=== PATIENT | female | born 1955 | race Caucasian/White ===

== ENCOUNTER → 2019-09-06 09:02 | Outpatient (CLI) | payer OTHER, SELFPAY ==
--- NOTE | ~2019-09-06 | DEXA_ITS ---
Bone Density Report Name: Little Lemons Age: 63 Sex: Female Ethnicity: White Date of : 1955 Indication: osteopenia; height loss;postmenopausal Referring Provider: AUDREY BULLARD Study: Bone densitometry was performed. Exam Date: September 06, 2019 Accession number: [id number] Bone Density: Region BMD T-score Z-score Classification AP Spine (L1-L4) 0.813 -2.1 -0.4 Osteopenia Femoral Neck (Left) 0.617 -2.1 -0.6 Osteopenia Total Hip (Left) 0.740 -1.7 -0.5 Osteopenia Femoral Neck (Right) 0.643 -1.9 -0.4 Osteopenia Total Hip (Right) 0.777 -1.3 -0.2 Osteopenia Total Hip Mean 0.759 -1.5 -0.4 Osteopenia World Health Organization criteria for BMD impression classify patients as: Normal (T-score at or above -1.0), Osteopenia (T-score between -1.0 and -2.5), or Osteoporosis (T-score at or below -2.5). 10-year Fracture Risk(1): Major Osteoporotic Fracture 11% Hip Fracture 1.6% Reported Risk Factors: [place] (), Neck BMD=0.617, BMI=25.3 (1) FRAX(R) Version 3.08. Fracture probability calculated for an untreated patient. Fracture probability may be lower if the patient has received treatment. Previous Exams: Region Exam Age BMD T-score BMD Change BMD Change Date g/cm2 vs Baseline vs Previous AP Spine(L1-L4) 09/06/2019 63 0.813 -2.1 -0.044* -0.044* 02/03/2017 61 0.858 -1.7 Total Hip(Left) 09/06/2019 63 0.740 -1.7 -0.028* -0.028* 02/03/2017 61 0.768 -1.4 Total Hip(Right) 09/06/2019 63 0.777 -1.3 -0.026 -0.026 02/03/2017 61 0.804 -1.1 *Denotes significance at 95% confidence level, LSC for AP Spine = 0.022 g/cm2, LSC for Total Hip = 0.027 g/cm2 Clinical Information Provided by Patient: Has used the following medications: Vitamin D, Calcium Patient maximum height was 64 Menopause Age: 55 Does not regularly consume dairy products Drinks caffeinated beverages Onset of menses at age 11 Number of children 0 Impression: The patient has low bone mass, based on the Total Spine T-score. The patient has an estimated ten-year risk of hip fracture of 1.6% and an estimated ten-year risk of major fracture of 11%, based on the WHO FRAX algorithm. The BMD for the AP Spine(L1-L4) decreased, changing by -0.044 since the last DXA exam. The BMD for the Total Hip(Left) decreased, changing by -0.028 since the last DXA exam. Discussion: BONE DENSITY IS LOW AT ONE OR MORE SKELETAL SITES. This p
== END ==
PROVIDERS: PCP Internal Medicine Geriatric Medicine
DX: Z13.820 Encounter for screening for osteoporosis (principal); M85.89 Other specified disorders of bone density and structure, multiple sites
CPT/HCPCS: 77080

== ENCOUNTER → 2020-12-26 10:54 | Outpatient (CLI) | payer MEDICARE, SELFPAY ==
--- NOTE | ~2020-12-26 | XR_ITS ---
EXAMINATION: XR shoulder RT min 2V INDICATION: Right shoulder TECHNIQUE: Four views of the right shoulder are submitted. COMPARISON: None FINDINGS: Normal alignment. No fracture. There is moderate osteoarthritis of the acromioclavicular an d glenohumeral joints. Soft tissues are unremarkable. IMPRESSION: 1. Polyarticular osteoarthritis. Reviewed, dictated and finalized at location B.
== END ==
PROVIDERS: PCP Family Medicine; Visit Provider Family Medicine
DX: G89.29 Other chronic pain (principal); M25.511 Pain in right shoulder; M19.011 Primary osteoarthritis, right shoulder
CPT/HCPCS: 73030

== ENCOUNTER → 2021-06-17 07:30 | Outpatient (CLI) | payer MEDICARE, SELFPAY ==
--- NOTE | ~2021-06-17 | XR_ITS ---
XR chest 2V DATE: 06/17/2021 07:45 INDICATION: Cough. Acute bronchitis. TECHNIQUE: PA and lateral views COMPARISON: 11/03/2005 2 view chest FINDINGS: Normal heart size. No hilar or mediastinal enlargement. Moderate bilateral hyperinflation. No pulmonary infiltrate or consolidation, pleural effusion or pulm onary vascular congestion or pneumothorax is detected. Degenerative spurring of the thoracic spine. IMPRESSION: Moderate hyperinflation; no active cardiopulmonary disease Reviewed, dictated and finalized at location A.
== END ==
PROVIDERS: PCP Family Medicine; Visit Provider Family Medicine
DX: J20.9 Acute bronchitis, unspecified (principal); M46.04 Spinal enthesopathy, thoracic region
CPT/HCPCS: 71046

== ENCOUNTER → 2021-10-15 13:59 | Outpatient (CLI) | payer MEDICARE, OTHER, SELFPAY ==
--- NOTE | ~2021-10-15 | DEXA_ITS ---
Bone Density Report Name: CHRIS NICOLE Age: 66 Sex: Female Ethnicity: White Date of : 1955 Indication: osteopenia; height loss; postmenopausal Referring Provider: JUAN MIGUEL, AUDREY Husain Study: Bone densitometry was performed. Exam Date: October 15, 2021 Accession number: [id number] Bone Density: Region BMD T-score Z-score Classification AP Spine (L1-L4) 0.847 -1.8 0.0 Osteopenia Femoral Neck (Left) 0.587 -2.4 -0.8 Osteopenia Total Hip (Left) 0.732 -1.7 -0.4 Osteopenia Femoral Neck (Right) 0.612 -2.1 -0.6 Osteopenia Total Hip (Right) 0.750 -1.6 -0.3 Osteopenia Total Hip Mean 0.741 -1.7 -0.4 Osteopenia World Health Organization criteria for BMD impression classify patients as: Normal (T-score at or above -1.0), Osteopenia (T-score between -1.0 and -2.5), or Osteoporosis (T-score at or below -2.5). 10-year Fracture Risk(1): Major Osteoporotic Fracture 13% Hip Fracture 2.4% Reported Risk Factors: [place] (), Neck BMD=0.587, BMI=26.1 (1) FRAX(R) Version 3.08. Fracture probability calculated for an untreated patient. Fracture probability may be lower if the patient has received treatment. Previous Exams: Region Exam Age BMD T-score BMD Change BMD Change Date g/cm2 vs Baseline vs Previous AP Spine(L1-L4) 10/15/2021 66 0.847 -1.8 -0.010 0.034* 09/06/2019 63 0.813 -2.1 -0.044* -0.044* 02/03/2017 61 0.858 -1.7 Total Hip(Left) 10/15/2021 66 0.732 -1.7 -0.037* -0.009 09/06/2019 63 0.740 -1.7 -0.028* -0.028* 02/03/2017 61 0.768 -1.4 Total Hip(Right) 10/15/2021 66 0.750 -1.6 -0.053* -0.027 09/06/2019 63 0.777 -1.3 -0.026 -0.026 02/03/2017 61 0.804 -1.1 *Denotes significance at 95% confidence level, LSC for AP Spine = 0.022 g/cm2, LSC for Total Hip = 0.027 g/cm2 Clinical Information Provided by Patient: Has used the following medications: Vitamin D Patient maximum height was 64 Menopause Age: 55 Does not regularly consume dairy products Drinks caffeinated beverages Onset of menses at age 11 Number of children 0 Impression: The patient has low bone mass, based on the Left Femoral Neck T-score. The patient has an estimated ten-year risk of hip fracture of 2.4% and an estimated ten-year risk of major fracture of 13%, based on the WHO FRAX algorithm. No significant bone loss was observed. Discu
--- NOTE | ~2021-10-15 | MM_ITS ---
EXAMINATION: MM screening [facility] BI w timo HISTORY: Screening TECHNIQUE: Craniocaudal and mediolateral oblique 3-D tomosynthesis images were obtained and synthetic 2-D images were generated. CAD analysis was submitted and interpreted. COMPARISON: Comparison to multiple prior studies sequentially, with oldest reviewed study dated 05/10. BREAST PARENCHYMAL COMPOSITION: There are scattered areas of fibroglandular density. FINDINGS: There is no evidence of suspicious mass, calcification, or architectural distortion to sugg est malignancy in either breast. There has been no suspicious interval change. IMPRESSION: 1. No mammographic evidence of malignancy. 2. Recommend routine screening mammography in one year. BI-RADS Category 1: Negative Reviewed, dictated and finalized at location A.
== END ==
PROVIDERS: PCP Family Medicine; Visit Provider Obstetrics & Gynecology
DX: Z12.31 Encounter for screening mammogram for malignant neoplasm of breast (principal); M85.89 Other specified disorders of bone density and structure, multiple sites; Z78.0 Asymptomatic menopausal state
CPT/HCPCS: 77063; 77067; 77080

== ENCOUNTER 2021-11-10 07:14 | Outpatient (CLI) | payer MEDICARE, OTHER, SELFPAY ==
--- NOTE | ~2021-11-10 | US_ITS ---
EXAMINATION: US aorta [facility] DATE: 11/10/2021 09:04 CDT INDICATION: Screening for cardiovascular disorder. History of smoking. TECHNIQUE: Grayscale, color Doppler, and pulsed Doppler images of the aorta and common iliac arteries were obtained. COMPARISON: None. FINDINGS: The proximal aorta measures 2.1 cm greatest sagittal dimension. The mid aorta measures 1.7 cm greates t sagittal dimension. The distal aorta measures 1.6 cm greatest sagittal dimension. The right common internal iliac artery measures 1 cm. The left common iliac artery measures 1 cm. IMPRESSION: 1. Normal caliber aorta without aneurysm. Reviewed, dictated and finalized at location A.
--- NOTE | 2021-11-10 09:01 | ECG_ITS ---
Measurements Intervals [place] Rate: 62 P: 69 DC: 162 QRS: 53 QRSD: 104 T: 43 QT: 414 QTc: 424 Interpretive Statements SINUS RHYTHM BASELINE WANDER- I, II NORMAL ECG NO PREVIOUS ECG AVAILABLE FOR COMPARISON Electronically Signed On 11-10-2021 9:58:19 CDT by Karlos Rodriguez D.O.
--- NOTE | 2021-11-10 10:00 | ECHO_ITS ---
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 Strain analysis performed. Summary 1. Complete two-dimensional, color flow and Doppler transthoracic echocardiogram is performed. 2. Left ventricular chamber dimension is normal. 3. Left ventricular systolic function is normal, estimated at 65-70%. 4. The left ventricular diastolic function is normal. 5. E/e' 6 is not elevated. 6. Global longitudinal strain is normal at -21.9%. 7. There is mild aortic valve sclerosis. 8. There is mild aortic valve regurgitation. 9. There is trace mitral valve regurgitation. 10. There is trace tricuspid valve regurgitation. 11. No pulmonary hypertension, estimated pulmonary arterial systolic pressure is 29 mmHg. Left Ventricle E/e' 6 is not elevated. Global longitudinal strain is normal at -21.9%. Left ventricular chamber dimension is normal. Left ventricular systolic function is normal, estimated at 65-70%. The left ventricular diastolic function is normal. Right Ventricle Right ventricular systolic function is normal and with normal TAPSE 2.4 cm. Right ventricular chamber dimension is normal. Left Atria Left atrial chamber dimension is normal. Right Atria Right atrial chamber dimension is normal. Aortic Valve The aortic valve is trileaflet. There is mild aortic valve sclerosis. There is no aortic valve stenosis. There is mild aortic valve regurgitation. Pulmonic Valve There is no pulmonic regurgitation. Mitral Valve There is no mitral valve stenosis. There is trace mitral valve regurgitation. Tricuspid Valve There is trace tricuspid valve regurgitation. No pulmonary hypertension, estimated pulmonary arterial systolic pressure is 29 mmHg. Pericardium/Pleural There is no pericardial effusion. Inferior Vena Cava Normal inferior vena cava with >50% collapse upon inspiration consistent with normal right atrial pressure, 5 mmHg. Aorta The aortic root size at the sinus of Valsalva is normal. Left Ventricular Outflow Tract Name Value Normal LVOT 2D LVOT Diameter 2.0 cm LVOT Doppler LVOT Peak Gradient 4 mmHg LVOT Mean Gradient 2 mmHg LVOT VTI 24 cm LVOT VTI/AV VTI Ratio 0.8 LVOT Stroke Volume 74 ml LVOT CO 4.4 l/min LVOT CI 2.6 l/min/m2 Mitral Valve Name
--- NOTE | 2021-11-10 10:00 | EST_ITS ---
Patient Info Name: Little Lemons Age: 66 years : 1955 Gender: Female Ht: 63 in Wt: 142 lbs BSA: 1.70 m2 Exam Date: 11/10/2021 11:48 AM Exam Location: [facility] Stress Patient Status: Outpatient Admit Date: 11/10/2021 Staff Ordering Physician: Ximena Sanchez NP Attending Provider: Ximena Sanchez NP Exercise Technologist: Dionna Toney RDCS Exercise Physician: Karlos Rodriguez DO Exam Type: CA stress test treadmill Study Info Indications R06.02 - Shortness of breath A treadmill exercise stress test was performed. Summary 1. 1. Negative Leonardo exercise stress test for ischemic ST changes by ECG criteria. 2. 2. Good functional capacity, achieving 7 METs of workload. 3. 3. Appropriate HR response to exercise. 4. 4. Appropriate HR recovery at 1 minute post exercise. 5. 5. No imaging with stress testing. 6. 6. Patient informed of the above results. Protocol: Leonardo Stress ECG Details Stage: REST Duration (min): 0 min : 56 sec Speed (mph): 0.0 Grade (%): 0 HR (bpm): 61 SBP (mmHg): 124 DBP (mmHg): 77 METS: --- Stage: REST Duration (min): 11 min : 44 sec Speed (mph): 0.0 Grade (%): 0 HR (bpm): 66 SBP (mmHg): 124 DBP (mmHg): 77 METS: --- Stage: STAGE 1 Duration (min): 1 min : 0 sec Speed (mph): 1.7 Grade (%): 10 HR (bpm): 100 SBP (mmHg): 124 DBP (mmHg): 77 METS: --- Stage: STAGE 1 Duration (min): 2 min : 0 sec Speed (mph): 1.7 Grade (%): 10 HR (bpm): 121 SBP (mmHg): 124 DBP (mmHg): 77 METS: --- Stage: STAGE 1 Duration (min): 3 min : 0 sec Speed (mph): 1.7 Grade (%): 10 HR (bpm): 127 SBP (mmHg): 160 DBP (mmHg): 77 METS: --- Stage: STAGE 2 Duration (min): 1 min : 0 sec Speed (mph): 2.5 Grade (%): 12 HR (bpm): 138 SBP (mmHg): 160 DBP (mmHg): 77 METS: --- Stage: STAGE 2 Duration (min): 2 min : 0 sec Speed (mph): 2.5 Grade (%): 12 HR (bpm): 145 SBP (mmHg): 173 DBP (mmHg): 80 METS: --- Stage: STAGE 2 Duration (min): 3 min : 0 sec Speed (mph): 2.5 Grade (%): 12 HR (bpm): 150 SBP (mmHg): 173 DBP (mmHg): 80 METS: --- Stage: RECOVERY Duration (min): 0 min : 59 sec Speed (mph): 0.0 Grade (%): 0 HR (bpm): 108 SBP (mmHg): 162 DBP (mmHg): 80 METS: --- Stage: RECOVERY Duration (min): 1 min : 59 sec Speed (mph): 0.0 Grade (%): 0 HR (bpm): 85 SBP (mmHg): 162 DBP (mmHg): 80 METS: --- Stage: RECOVERY Duration (min): 2 min : 59 sec Speed (mph): 0.0 Grade (%): 0 HR (bpm): 83 SBP (mmHg): 161 DBP (mmHg): 81 METS: --- Stage: RECOVERY Duration (min): 3 min : 59 sec Speed (mph): 0.0 Grade (%): 0 HR (bpm): 78 SBP (mmHg): 161 DBP (mmHg): 81 METS: --- Stage: RECOVERY Duration (min): 4 min : 49 sec Speed (mph): 0.
--- NOTE | 2021-11-10 14:24 | WPDPFTINT ---
PFT Procedure Performed PFT Procedure Performed Spirometry with Pre/Post Bronchodilator Plethysmography (Lung Vol) Diffusing Cap (DLCO) Flow Vol Loop PFT Interpretation This is a pulmonary function test with pre and post-bronchodilator spirometry, plethysmography and diffusing capacity. The test was performed and results interpreted in accordance with the 2019 and 2005 ATS/ERS Task Force guidelines respectively using the Global Lung Function Initiative-2012 reference equations. Patient demonstrated good effort and cooperation. Reproducibility criteria were met. The quality of the pre bronchodilator spirometry maneuver was Grade A and post bronchodilator spirometry maneuver was Grade A. Findings: Spirometry: The contour the inspiratory and expiratory flow tracing are normal. The pre bronchodilator FVC is 3.13 L, 109% predicted. The pre bronchodilator FEV1 is 2.48 L, 110% predicted. The pre bronchodilator FEV1: FVC ratio 79%. The post bronchodilator FVC is 3.12 L, representing no change. The post bronchodilator FEV1 is 2.62 L, representing a 6% increase. The post bronchodilator FEV1: FVC ratio was 84%. Plethysmography: The total lung capacity is 4.94 L, 101% predicted. The functional residual capacity is 2.49 L, 89% predicted. The residual volume is 1.80 L, 87% predicted. Diffusing capacity: The diffusing capacity unadjusted for hemoglobin and carboxyhemoglobin is 16.7, 81% predicted. The diffusing capacity adjusted for alveolar volume is 3.92, 89% predicted. Impression: The spirometry is normal without evidence of an obstructive abnormality. There is no significant improvement after inhaling a single dose of albuterol. The lung volumes are normal. The diffusing capacity is normal. There are no prior studies for comparison
== END 2021-11-10 07:15 | disposition home or self-care (01) ==
PROVIDERS: PCP Family Medicine; Visit Provider Nurse Practitioner Family
DX: Z13.6 Encounter for screening for cardiovascular disorders (principal); Z87.891 Personal history of nicotine dependence; R06.02 Shortness of breath; R68.89 Other general symptoms and signs; Z82.49 Family history of ischemic heart disease and other diseases of the circulatory system; R07.9 Chest pain, unspecified
CPT/HCPCS: 76706; 93005; 93017; 93306; 94060; 94726; 94729

== ENCOUNTER 2021-12-05 08:34 | Emergency (ER) | payer MEDICARE, OTHER, SELFPAY ==
--- NOTE | ~2021-12-05 | XR_ITS ---
EXAMINATION: XR tibia fibula RT 2V DATE: 12/05/2021 09:07 INDICATION: Proximal right fibular pain 2 weeks after a fall down stairs. TECHNIQUE: AP and lateral views of the right lower leg were obtained. COMPARISON: None. FINDINGS: A couple small mildly displaced fracture fragments along the posterolateral margin of the proximal ri ght fibular metaphysis. No evident involvement of the medial sided cortex and is unclear whether this represents a transverse fracture across the metaphysis or an avulsion fracture isolated to the poste rolateral cortex. No other fractures identified. Joint spaces at the right knee and ankle are normal. Mild subcutaneous edema at the lateral aspect of the proximal calf in the immediate vicinity of the fracture. IMPRESSION: 1. Mildly displaced fracture at the proximal right fibula. Reviewed, dictated and finalized at location B.
[2021-12-05 08:47] VITALS: BP 139/68; PULSE 70; RESP 16; TEMP 36.8; O2SAT 100
--- NOTE | 2021-12-05 08:50 | ED.LOWEXIN ---
HPI - Extremity Injury (Lower) General Chief Complaint: Extremity Injury, Lower Stated Complaint: Right Leg Injury Source: patient Mode of arrival: ambulatory Limitations: no limitations History of Present Illness HPI Narrative: 66 y/o female presented for c/o pain to right lower leg after injury 2 weeks ago. She states she missed the last step and she fell to the ground. Endorses pain to lateral aspect of right lower knee radiating to lower leg. Reports bruising at the time of injury to the front and side of lower leg which has resolved. States pain is constant and achy, rates 6/10, worse with walking. Denies numbness, tingling, or weakness. Ambulating with steady gait. Taking Tylenol and ibuprofen. Related Data Home Medications Medication Instructions Recorded Confirmed trazodone 50 mg tablet 50 mg PO QHS PRN Sleep 12/05/21 12/05/21 Allergies Allergy/AdvReac Type Severity Reaction Status Date / Time hydrocodone AdvReac Unknown Nausea Verified 12/05/21 08:52 Review of Systems Review of Systems: CONSTITUTIONAL: Denies body aches, fever, chills EYES: Denies visual changes ENT: Denies rhinorrhea, congestion CARDIOVASCULAR: Denies chest pain, palpitations, or edema. RESPIRATORY: Denies cough or dyspnea. SKIN: Denies rash or wounds. MUSCULOSKELETAL: Reports right leg pain NEUROLOGIC: Denies headache, numbness, tingling, or weakness. All systems reviewed & are unremarkable except as noted in HPI and below PMFSH Past Medical History Medical History Acute bronchitis Chest x-ray 06/17/2021 with moderate hyperinflation but otherwise negative. Acute non-recurrent maxillary sinusitis Anxiety BMI 25.0-25.9,adult Body mass index [BMI] 24.0-24.9, adult Chronic low back pain without sciatica Chronic right shoulder pain Moderate osteoarthritis on x-ray 12/26/2020 COVID (10/11/20) COVID-19 (03/24/21) 2nd episode, unvaccinated Decreased exercise tolerance Decreased exercise tolerance (~2021) Pulmonary function test on 11/10/2021 was completely normal. Family history of coronary artery disease Fever blister Hepatitis past history of hepatitis B and hepatitis C from occupational exposure 1984 with subsequent serology negative History of hepatitis B virus infection PCR negative 12/27/2020 History of hepatitis C PCR 12/27/20 History of tobacco abuse History of tobacco use 1/2 of a pack of cigarettes daily for 18 years. Quit in 1996 Hypersomnia (~06/17/21) Insomnia Lichen sclerosus of vulva Mixed hyperlipidemia total cholesterol 243, triglycerides 140, HDL 69 and LDL 148 on 12/27/2020 Olfactory hallucination Osteopenia vitamin-D level normal at 40 on 12/27/2020 Polyp of colon colon polyp age 50, 55, and 60 with normal colonoscopy February, with recheck in 5 years Screening for abdominal aortic aneurysm Screening for cardiovascular, respiratory, and genitourinary diseases Screening for lung cancer Shortness of breath (~2021) Pulmonary function test on 11/10/2021 completely normal. Family History Family History Mother COPD (chronic obstructive pulmonary disease) Lung cancer Renal cancer Father Parkinsons disease Other Family history of malignant neoplasm Social History Social History Smoking status: Former smoker Tobacco type: cigarettes Smoking end date: 02/23/92 Alcohol intake: current Alcohol use details: socially Substance use: never Substance use type: does not use Comments At time of signature, I have reviewed and agree with nursing past medical, surgical, social and family history unless otherwise noted. Please see nursing chart for further information. There is no relevant family history pertinent to the presenting complaint Exam Narrative: GENERAL: Well-appearing CHEST: Speaks in full sentenc
== END 2021-12-05 09:45 | disposition home or self-care (01) ==
PROVIDERS: Emergency Provider Nurse Practitioner Family; PCP Family Medicine
DX: S82.831A Other fracture of upper and lower end of right fibula, initial encounter for closed fracture (principal); W10.9XXA Fall (on) (from) unspecified stairs and steps, initial encounter; Z86.16 Personal history of COVID-19; Z87.891 Personal history of nicotine dependence; E78.5 Hyperlipidemia, unspecified
CPT/HCPCS: 73590; 99213; 99214; G0463